=== PATIENT | female | born 2000 | race Hispanic/Latino ===

== ENCOUNTER 2024-03-20 22:32 | Emergency (ER) | payer OTHER ==
[~2024-03-20] VITALS: Ht 162.6 cm; Wt 56.2 kg
[2024-03-20 22:48] VITALS: PULSE 74; RESP 16; TEMP 98.2
[2024-03-20] MEDS ORDERED: ULTRAM 50MG50 MG PO (23:34)
[2024-03-20] MEDS ORDERED: TRAMADOL HCL 50 MG TAB ONE (23:42)
[2024-03-20] MEDS: TRAMADOL HCL 50 MG TAB PO ONE (23:45)
[2024-03-20 23:58] VITALS: BP 121/90; PULSE 77; RESP 16; O2SAT 100
== END 2024-03-20 23:55 | disposition home or self-care (01) ==
LOC: ER 23:26
DX: T20.16XA Burn of first degree of forehead and cheek, initial encounter (principal); T22.112A Burn of first degree of left forearm, initial encounter; T23.172A Burn of first degree of left wrist, initial encounter; X10.2XXA Contact with fats and cooking oils, initial encounter; Y93.G3 Activity, cooking and baking; Y92.89 Other specified places as the place of occurrence of the external cause
CPT/HCPCS: 99283